=== PATIENT | male | born 1985 | race Caucasian/White ===

== ENCOUNTER 2023-08-02 15:55 | Emergency (ER) | payer OTHER, SELFPAY ==
--- NOTE | ~2023-08-02 | XR_ITS ---
EXAMINATION: XR cervical spine 4-5V DATE: 08/02/2023 16:34 INDICATION: Neck pain and stiffness. TECHNIQUE: 5 views of cervical spine were obtained. COMPARISON: None. FINDINGS: Bone alignment is normal. Vertebral body heights and intervertebral disc heights are normal . The facet joints are unremarkable. No central canal stenosis or prevertebral soft tissue swelling. IMPRESSION: 1. No etiology for the patient's symptoms. Reviewed, dictated and finalized at location E.
[2023-08-02 16:02] VITALS: BP 159/105; PULSE 84; RESP 16; TEMP 36.7; O2SAT 97
--- NOTE | 2023-08-02 16:10 | ED.URI ---
HPI - URI/Sore Throat General Chief Complaint: Neck Pain/Injury Stated Complaint: Neck Pain Source: patient and RN notes reviewed History of Present Illness HPI Narrative: 37 yo M presents to urgent care with complaints of posterior lower neck pain. Pt states he woke up with this pain and it is exacerbated when he moves his head in any direction. Pt denies any injury. Denies any numbness, tingling, headache, vomiting, or arm pain. Pt states he has never had this pain before but it feels like it is deep in his spine. Pt took ibuprofen this morning. Pt states he has had a foul taste in his mouth x 3 weeks and was going to come in any way today to be evaluated for throat infection. Related Data Allergies Allergy/AdvReac Type Severity Reaction Status Date / Time No Known Allergies Allergy Verified 08/02/23 16:16 Review of Systems Review of Systems: CONSTITUTIONAL: Denies fever, chills, or sweats. EYES: Denies visual changes, redness, or discharge. ENT: Denies otalgia and sore throat. bad taste in mouth CARDIOVASCULAR: Denies chest pain, palpitations, or edema. RESPIRATORY: Denies cough or dyspnea. GASTROINTESTINAL: Denies abdominal pain, nausea, vomiting, or diarrhea. GENITOURINARY: Denies dysuria or hematuria. SKIN: Denies rash or itching. MUSCULOSKELETAL:Posterior neck pain. NEUROLOGIC: Denies headache, numbness, or weakness. Pertinent positives per HPI. PMFSH Comments At the time of my signature, I reviewed and agree with the nursing past medical, surgical, social, and family history. There is no relevant family history pertinent to the patient complaint. Exam Narrative: GENERAL: This is a well-nourished, well-developed patient, in no apparent distress. HEAD: normocephalic, atraumatic. EYES: Sclera clear/white. Vision is grossly intact. EARS: External ears normal, auditory canals clear and without drainage, TMs normal without perforation. Hearing grossly intact. NOSE: External nose normal with no obvious nasal discharge, nares without redness, no rhinorrhea. THROAT: Mucous membranes moist, posterior pharynx clear. NECK: Neck supple, non-tender without lymphadenopathy, masses or thyromegaly. Pt unable to rotate head, flex, or extend neck due to pain. CARDIOVASCULAR: Regular rate and rhythm without murmurs, gallops, or rubs. RESPIRATORY: Clear to auscultation. Breath sounds equal bilaterally. No wheezes, rales, or rhonchi. GASTROINTESTINAL: Abdomen soft, non-tender, nondistended. Bowel sounds are active. No hepato-splenomegaly, or palpable masses. No guarding. SKIN: warm, intact with no suspicious lesions or rash, good texture and turgor. NEURO: awake, alert, and oriented to person, place and time. There were no obvious focal neurologic abnormalities. EXTREMITIES: No clubbing, cyanosis, or edema. No joint tenderness, effusion, or edema noted. BACK: Nontender without deformity or crepitus. No flank tenderness. Course Course Level of Care: Express Care Visit Vital Signs Vital signs: Vital Signs Temperature 98.1 F 08/02/23 16:02 Pulse Rate 84 08/02/23 16:02 Respiratory Rate 16 08/02/23 16:02 Blood Pressure 159/105 H 08/02/23 16:02 Pulse Oximetry 97 08/02/23 16:02 Oxygen Delivery Room Air 08/02/23 16:02 Temperature 98.1 F 08/02/23 16:02 Pulse Rate 84 08/02/23 16:02 Respiratory Rate 16 08/02/23 16:02 Blood Pressure 159/105 H 08/02/23 16:02 Pulse Oximetry 97 08/02/23 16:02 Oxygen Delivery Room Air 08/02/23 16:02 Reviewed MDM - URI/Sore Throat MDM Narrative Medical decision making narrative: Not likely meningitis due to lack of fever, tachycardia, or headache. Pt looks well. It was strongly advised for pt to go to the ER with any new or worsening symptoms. Take the muscle relaxers as directed if needed. Do not drive while taking the muscle relaxers. May take 800 mg of ibuprofen every 8 hours with food and 1,000 mg of Tylenol every 6 hours if needed. D
== END 2023-08-02 16:50 | disposition home or self-care (01) ==
PROVIDERS: Emergency Provider Nurse Practitioner Family
DX: S16.1XXA Strain of muscle, fascia and tendon at neck level, initial encounter (principal); X58.XXXA Exposure to other specified factors, initial encounter
CPT/HCPCS: 72050; 87081; 87880; 99213; G0463

== ENCOUNTER 2024-12-09 16:40 | Emergency (ER) | payer OTHER, SELFPAY ==
--- NOTE | 2024-12-09 16:47 | ED_ITS ---
HPI - URI/Sore Throat General Chief Complaint: Upper Respiratory Infection Stated Complaint: COUGH/CHEST PAIN Time Seen by Provider: 12/09/24 17:01 Source: patient and RN notes reviewed Mode of arrival: ambulatory Limitations: no limitations History of Present Illness HPI Narrative: 38-year-old male presents concern for cough for 3 days. Reports that got worse last night. Reports a headache, body aches, low-grade temperature. Reports his ribs hurt from coughing. Reports he took Tylenol MD elicited complaint: cough Related Data Allergies Allergy/AdvReac Type Severity Reaction Status Date / Time No Known Allergies Allergy Verified 12/09/24 16:54 Review of Systems Review of Systems: CONSTITUTIONAL: Reports malaise, low-grade fever. EYES: Denies visual changes, redness, or discharge. ENT: Denies rhinorrhea, congestion, sinus pain, otalgia and sore throat. CARDIOVASCULAR: Denies chest pain, palpitations, or edema. RESPIRATORY: Reports cough. Denies dyspnea. GASTROINTESTINAL: Denies abdominal pain, nausea, vomiting, diarrhea SKIN: Denies rash or itching. MUSCULOSKELETAL: Reports myalgia. NEUROLOGIC: Reports headache. All systems reviewed & are unremarkable except as noted in HPI and below PMFSH Comments At time of signature, agree with nursing past medical, surgical, social and family history. There is no relevant family history pertinent to the presenting complaint Exam Narrative: GENERAL: Nontoxic-appearing, well-nourished, and in no acute distress. HEAD: Normocephalic EYES: PERRLA, conjunctivae clear ENT: Nares clear. Mucous membranes moist. TM pearly cruz with sharp light reflex bilaterally; no tragal tenderness. Oropharynx not erythematous without lesions. Tonsils not enlarged and without exudate, no drooling, no hoarseness, no trismus, uvula midline. NECK: Supple. No lymphadenopathy CHEST: Clear to auscultation, breath sounds equal. No wheezing, rhonchi, rales, or stridor. No respiratory distress, speaks in full sentences. HEART: Regular rate and rhythm. No murmur heard. SKIN: Warm, dry, no rash. NEURO: Alert and oriented x3. PSYCH: Normal mood and affect Course Course Emergency Course: Patient is aware of diagnosis, understands and agrees to treatment plan. Anticipatory guidance given. Patient agrees to follow-up as directed and is aware of reasons to seek care at the emergency department. Portions of this record may have been created with voice recognition software Level of Care: Express Care Visit Vital Signs Vital signs: Reviewed. MDM - URI/Sore Throat MDM Narrative Medical decision making narrative: Differential diagnosis considered: Rice virus, strep pharyngitis, allergic rhinitis, upper respiratory tract infection, sinusitis, rhinosinusitis, nasopharyngitis. viral pharyngitis, otitis media, otitis externa, pneumonia, bronchitis, viral cough syndrome, viral syndrome, and influenza. Exam findings show no acute concerns or changes; patient is non-toxic appearing and is in no distress. Patient is appropriate for outpatient treatment and follow-up. Lab Data Attestation: I reviewed the patient's lab results. Critical Care Time Critical Care Time Critical Care Time: No Discharge Plan Discharge Clinical Impression: Influenza A Patient Disposition: Home, Self-Care Condition: Stable Instructions: Influenza (ED) Additional Instructions: -Take strict precautions to prevent the spread of your virus. Be diligent about covering your cough (even when you are alone) and washing your hands frequently. -You may contagious until you have been symptom and/or fever free for 24 hours without fever reducing medicine -Alternate Ibuprofen and Tylenol for pain and fever relief (per package directions) -Some Cough medicines may make you drowsy, do not take it if you have to make important decisions, drive, or work. -Drink plenty of fluid - drink fluid with electrolytes such as Gatorade or other oral re-hydration solution. Avoid caffeine, which can make dehydration worse. -Get plenty of rest to help your body heal. -Use a cool mist humidifier for chest and nasal congestion. -Eat RAW honey or use cough drops to ease throat discomfort -Do not smoke or expose children to secondhand smoke -Wash your hands frequently. -Please follow-up with your primary care doctor in the next 1-2 days if your symptoms do not improve. -If you have any worsening of symptoms or any other concerns please go to the ED immediately. -Please take medications as prescribed and continue taking your home medications as usual. Patient Language: Cameroonian Prescriptions: New promethazine-DM 6.25-15 mg/5 mL syrup 5 ml PO Q4-6H PRN (Reason: cough) Qty: 120 0RF methylprednisolone [Medrol (Landon)] 4 mg tablets,dose pack See Rx Instructions .ROUTE .COMPLEX Qty: 21 0RF Rx Instructions: orally per package directions albuterol sulfate 90 mcg/actuation HFA aerosol inhaler 2 puff INHALATION QID PRN (Reason: shortness of breath or wheezing) Qty: 8.5 0RF Follow-up/Referrals: PHYSICIAN,APPLIED PSYCHOLOGY PROFESSOR [Primary Care Provider] - Stand Alone Forms: Work/School Release IP Time of Disposition: 17:06
[2024-12-09 16:48] VITALS: BP 177/105; PULSE 91; RESP 20; TEMP 37.4; O2SAT 98
[2024-12-09 17:12] LABS: EDCOVIDSCREEN Negative (Negative); EDINFLUASCREEN Positive (Negative); EDINFLUBSCREEN Negative (Negative)
--- OUTSIDE RECORDS SUMMARY | 2024-12-09 18:41 | XMS_ITS | Clinical Summary ---
Author Organization [facility] Address [address] [place] [address] Care Team Providers Care Retail Client Solutions Analyst Name Role Phone Unavailable Primary Care Provider Unavailabl e Source Comments [facility],non-owned Affiliates and Associated Physician Practices is amultiple site organization consisting of ambulatory clinics and hospital sitesin [place], [place], [place] and [place]. This disclosure is being madepursuant to the Care Everywhere program and may not contain all information available regarding this patient. Last updated 18.[facility] Allergies No known active allergies Social History Tobacco Use Types Packs/Day Years Used Date Smoking Tobacco: Never Assessed Sex and Gender Information Value Date Recorded Sex Assigned at Not on file Gender Identity Not on file Sexual Orientation Not on file Last Filed Vital Signs Vital Sign Reading Time Taken Comments Blood Pressure 157/111 06/13/2022 4:25 PM CDT Pulse 90 06/13/2022 4:25 PM CDT Temperature 36.5 C (97.7 F) 06/13/2022 12:47 PM CDT Respiratory Rate 10 06/13/2022 1:25 PM CDT Oxygen Saturation 97% 06/13/2022 4:25 PM CDT Inhaled Oxygen Concentration - - Weight 81.6 kg (180 lb) 06/13/2022 12:47 PM CDT Height 172.7 cm (5' 8 ) 06/13/2022 12:47 PM CDT Body Mass Index 27.37 06/13/2022 12:47 PM CDT Plan of Treatment Health Maintenance Due Date Last Done Comments LIPID TESTING 1983 HIV SCREENING 1998 HEPATITIS C SCREENING 12/08/2001 DTAP/TDAP/TD VACCINES (1 - Tdap) 2002 HEPATITIS B VACCINE (1 of 3 - 19+ 3-dose series) 2002 COVID-19 VACCINE (2023-2 5 season) 2024 INFLUENZA VACCINE (#1) 2024 DEPRESSION SCREENING 10/16/2024 ZOSTER VACCINE (1 of 2) 2033 HIB VACCINE Aged Out No longer eligi ble based on patient's age to complete this topic HPV VACCINE Aged Out No longer eligi ble based on patient's age to complete this topic MENINGOCOCCAL (Group B) VACCINE Aged Out No longer eligible based on patient's age to complete this topic MENINGOCOCCAL VACCINE Aged Out No darshana shakila eligible based on patient's age to complete this topic PNEUMOCOCCAL VACCINE Aged Out No long er eligible based on patient's age to complete this topic
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
--- OUTSIDE RECORDS SUMMARY | 2024-12-09 18:41 | XMS_ITS | Referral Summary ---
Author Organization [facility] Address [facility] [place] [address] Care Team Providers Care Quick Technician Name Role Phone Unavailable Primary Care Provider Unavailabl e Source Comments [facility],non-owned Affiliates and Associated Physician Practices is amultiple site organization consisting of ambulatory clinics and hospital sitesin [place], [place], [place] and [place]. This disclosure is being madepursuant to the Care Everywhere program and may not contain all information available regarding this patient. Last updated 18.[facility] [employer] Allergies No known active allergies Social History [...] 06/13/2022 12:47 PM CDT Plan of Treatment Not on file
--- OUTSIDE RECORDS SUMMARY | 2024-12-09 18:42 | XMS_ITS | Patient Health Summary ---
Author Organization [facility] Address [address] [place] [address] Care Team Providers Care Claims Customer Service Representative Name Role Phone Unavailable Primary Care Provider Unavailabl e Note from [facility],non-owned Affiliates and Associated Physician Practices is amultiple site organization consisting of ambulatory clinics and hospital sitesin [place], [place], [place] and [place]. This disclosure is being madepursuant to the Care Everywhere program and may not contain all information available regarding this patient. Last updated 18.[facility] [employer] [facility] Allergies No known active allergies Social History [...] Mass Index 27.37 06/13/2022 12:47 PM CDT Procedures * CARDIAC EKG ORDER(Performed 06/15/2022) * CBC W AUTO DIFFERENTIAL(Performed 06/13/2022) * CK BLOOD(Performed 06/13/2022) * COMPREHENSIVE METABOLIC PANEL(Performed 06/13/2022) Results * CARDIAC EKG ORDER (06/15/2022 12:33 PM CDT) Narrative 06/15/2022 12:33 PM CDT Ordered by an unspecified provider. Scanned Document CARDIAC SERVICES ORD ERABLES * CBC W AUTO DIFFERENTIAL (06/13/2022 1:34 PM CDT) WBC 6.8 3.5 - 10.5 10 3/uL 06/13/2022 1:47 PM [facility] RBC 4.90 4.30 - 5.70 10 6/uL 06/13/2022 1:47 PM [facility] Hemoglobin 14.7 12.0 - 17.6 g/dL 06/13/2022 1:47 PM [facility] Hematocrit 41.7 35.2 - 51.7 % 06/13/2022 1:47 PM [facility] MCV 85.1 80.7 - 98.3 fL 06/13/2022 1:47 PM [facility] MCH 30.0 26.7 - 34.0 pg 06/13/2022 1:47 PM [facility] MCHC 35.3 30.8 - 35.9 g/dL 06/13/2022 1:47 PM [facility] Platelet Count 174 150 - 400 10 3/uL 06/13/2022 1:47 PM [facility] RDW-SD 38.4 36.0 - 50.0 fL 06/13/2022 1:47 PM [facility] RDW-CV 12.5 11.2 - 14.8 % 06/13/2022 1:47 PM [facility] MPV 11.1 9.4 - 12.9 fL 06/13/2022 1:47 PM [facility] nRBC Absolute 0.00 0 10 3/uL 06/13/2022 1:47 PM [facility] nRBC Auto 0.0 0 /100 WBC 06/13/2022 1:47 PM [facility] Neutrophils % 63.0 35.0 - 70.0 % 06/13/2022 1:47 PM [facility] Lymphocytes % 24.7 20.0 - 43.0 % 06/13/2022 1:47 PM [facility] Monocytes % 8.8 5.0 - 13.0 % 06/13/2022 1:47 PM [facility] Eosinophils % 2.2 0.0 - 6.0 % 06/13/2022 1:47 PM [facility] Basophil % 0.6 0.0 - 2.0 % 06/13/2022 1:47 PM [facility] Neutrophils Absolute 4.29 1.60 - 7.00 10 3/uL 06/13/2022 1:47 PM [facility] Lymphocyte Absolute 1.68 1.10 - 3.90 10 3/uL 06/13/2022 1:47 PM [facility] Monocytes Absolute 0.60 0.26 - 1.07 10 3/uL 06/13/2022 1:47 PM [facility] Eosinophils Absolute 0.15 0.00 - 0.47 10 3/uL 06/13/2022 1:47 PM [facility] Basophils Absolute 0.04 0.00 - 0.08 10 3/uL 06/13/2022 1:47 PM [facility] Immature Granulocytes % 0.7 0.0 - 1.0 % 06/13/2022 1:47 PM [facility] Immature Granulocytes Absolute 0.05 06/13/2022 1:47 PM [facility] Blood BLOOD SPECIMEN / Unknown Venipuncture / Unknown 06/13/2022 1:34 PM CDT 06/13/2022 1:44 PM CDT Ketan Love MD LAB - HEMATOLO GY ORDERABLES [address] [address], [facility] [phone] * (ABNORMAL) COMPREHENSIVE METABOLIC PANEL (06/13/2022 1:01 PM CDT) BUN 19 7 - 26 mg/dL 06/13/2022 1:35 PM [facility] Creatinine 1.30(H) 0.71 - 1.16 mg/dL 06/13/2022 1:35 PM [facility] Sodium 140 136 - 145 mmol/L 06/13/2022 1:35 PM [facility] Potassium 4.1 3.5 - 4.5 mmol/L 06/13/2022 1:35 PM [facility] Chloride 103 98 - 107 mmol/L 06/13/2022 1:35 PM [facility] CO2 23 22 - 29 mmol/L 06/13/2022 1:35 PM [facility] Glucose 163(H) 70 - 115 mg/dL 06/13/2022 1:35 PM [facility] Calcium 10.2 8.4 - 10.2 mg/dL 06/13/2022 1:35 PM [facility] Protein Total 7.5 6.0 - 8.3 g/dL 06/13/2022 1:35 PM [facility] Albumin 4.5 3.4 - 5.0 g/dL 06/13/2022 1:35 PM [facility] Bilirubin Total 0.3 0.2 - 1.2 mg/dL 06/13/2022 1:35 PM [facility] Alkaline Phosphatase 86 40 - 150 U/L 06/13/2022 1:35 PM [facility] ALT 28 5 - 55 U/L 06/13/2022 1:35 PM [facility] AST 22 5 - 34 U/L 06/13/2022 1:35 PM [facility] Anion Gap 18 8 - 18 06/13/2022 1:35 PM [facility] BUN/Creatinine Ratio 15 7 - 23 06/13/2022 1:35 PM [facility] Osmolality Calculated 296 270 - 300 mOsm/kg 06/13/2022 1:35 PM [facility] Albumin/Globulin Ratio 1.5 1.1 - 2.3 06/13/2022 1:35 PM [facility] eGFR by CKD-EPI 72(L) >=90 mL/min/1.7 3 m2 06/13/2022 1:35 PM [facility] Blood BLOOD SPECIMEN / Unknown Venipuncture / Unknown 06/13/2022 1:01 PM CDT 06/13/2022 1:09 PM CDT Ketan Love MD LAB - CHEMISTR Y ORDERABLES Performing Organization Address City/[facility]/ZIP Co de Phone Number [facility] [address] [place] [address], [facility] [phone] * (ABNORMAL) CK BLOOD (06/13/2022 1:01 PM CDT) CK Total 237(H) 30 - 200 U/L 06/13/2022 1:35 PM CDT [facility] Blood BLOOD SPECIMEN / Unknown Venipuncture / Unknown 06/13/2022 1:01 PM CDT 06/13/2022 1:09 PM CDT Ketan Love MD LAB - CHEMISTR Y ORDERABLES Performing Organization Address City/[facility]/ZIP Co de Phone Number [facility] [address] [place] [phone], [facility] [phone]
== END 2024-12-09 17:12 | disposition home or self-care (01) ==
PROVIDERS: Emergency Provider Nurse Practitioner
DX: J10.1 Influenza due to other identified influenza virus with other respiratory manifestations (principal); Z20.822 Contact with and (suspected) exposure to COVID-19
CPT/HCPCS: 87426; 87804; 99213; G0463

== ENCOUNTER 2025-09-29 19:08 | Emergency (ER) | payer OTHER, SELFPAY ==
--- OUTSIDE RECORDS SUMMARY | 2025-09-29 19:11 | XMS_ITS | Clinical Summary ---
Author Organization [facility] MailWriter Address [address] [address] Care Team Providers Care Train Braker Name Role Phone Unavailable Primary Care Provider Unavailabl e Source Comments [facility],non-owned Affiliates and Associated Physician Practices is amultiple site organization consisting of ambulatory clinics and hospital sitesin [place], [place], [place] and [place]. This disclosure is being madepursuant to the Care Everywhere program and may not contain all information available regarding this patient. Last updated 18.[facility] Allergies No known active allergies Social History Tobacco Use Types Packs/Day Years Used Date Smoking Tobacco: Never Assessed Sex and Gender Information Value Date Recorded Sex Assigned at Not on file Legal Sex Male 12:51 PM CDT Gender Identity Not on file Sexual Orientation [...] 12:47 PM CDT Height 172.7 cm (5' 8) 06/13/2022 12:47 PM CDT Body Mass Index 27.37 06/13/2022 12:47 PM CDT Plan of Treatment Health Maintenance Due Date Last Done Comments LIPID TESTING 1983 HIV SCREENING 1998 HEPATITIS C SCREENING 12/08/2001 DTAP/TDAP/TD VACCINES (1 - Tdap) 2002 HEPATITIS B VACCINE (1 of 3 - 19+ 3-dose series) 2002 HPV VACCINE (1 - 3-dose SCDM series) 2010 DEPRESSION SCREENING 10/16/2024 COVID-19 VACCINE (1 - 2024-2 6 season) 2025 INFLUENZA VACCINE (#1) 2025 ZOSTER VACCINE (1 of 2) 2033 HIB VACCINE Aged Out No longer eligi ble based on patient's age to complete this topic MENINGOCOCCAL (Group B) VACC INE SHARED DECISION-MAKING Aged Out No longer eligibl e based on patient's age to complete this topic MENINGOCOCCAL GROUPS A/C/Y/W VACCINE Aged Out No longer eligible b ased on patient's age to complete this topic PNEUMOCOCCAL VACCINE Aged Out No long er eligible based on patient's age to complete this topic Insurance [employer]
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
[2025-09-29 19:14] VITALS: BP 183/100; PULSE 91; RESP 20; TEMP 36.9; O2SAT 98
[2025-09-29 19:47] VITALS: BP 165/105
[2025-09-29 19:48] VITALS: BP 176/103
--- NOTE | 2025-09-29 19:57 | ED.URI ---
HPI - URI/Sore Throat General Chief Complaint: Upper Respiratory Infection Stated Complaint: cough Time Seen by Provider: 09/29/25 19:45 Source: patient Mode of arrival: ambulatory Limitations: no limitations History of Present Illness HPI Narrative: 39 year old male presents to [facility] with 1.5 weeks of cough with worsening for the past 4-5 days. Patient reports that he has some chest heaviness with his cough with some headache and some neck pain. Patient reports that he does have history of asthma. Patient reports that he has been taking Mal[place] cold and flu and Ibuprofen and also has beenn using his albuterol inhaler MD elicited complaint: cough and sore throat Pertinent past history: asthma Onset (ago): week(s) (1.5 weeks) Pain scale (0-10): 4 Able to tolerate fluids by mouth: Yes Treatments prior to arrival: ibuprofen, cold medicine and other (inhaler of albuterol as ordered) Related Data Allergies Allergy/AdvReac Type Severity Reaction Status Date / Time No Known Allergies Allergy Verified 09/29/25 19:44 Review of Systems Review of Systems: CONSTITUTIONAL: Denies malaise, chills, sweats, or fever. EYES: Denies visual changes, redness, or discharge. ENT: Reports rhinorrhea, congestion, sinus pain,no otalgia and no sore throat. CARDIOVASCULAR: Denies chest pain, palpitations, or edema. RESPIRATORY: Reports frequent cough.? Denies dyspnea.heaviness chest with cough GASTROINTESTINAL: Denies abdominal pain, nausea, vomiting, diarrhea SKIN: Denies rash or itching. MUSCULOSKELETAL: Denies myalgia, some neck discomfort NEUROLOGIC: reports headache. All systems reviewed & are unremarkable except as noted in HPI and below PMFSH Past Medical History Medical History (Updated 10/01/25 @ 17:28 by Shameka Yin APRN) Asthma Social History Social History (Updated 10/01/25 @ 17:27 by Shameka Yin APRN) Smoking status: Never smoker Comments At time of signature, agree with nursing past medical, surgical, social and family history. There is no relevant family history pertinent to the presenting complaint Exam Narrative: GENERAL: Well-appearing, well-nourished, and in no acute distress. HEAD: Normocephalic EYES: PERRLA, conjunctivae clear ENT: Nares clear, turbinates edematous and erythematous, clear discharge. Mucous membranes moist. TM pearly cruz with dull light reflex bilaterally; no tragal tenderness. Oropharynx erythematous without lesions. Tonsils not enlarged and without exudate, no drooling, no hoarseness, no trismus, uvula midline. NECK: Supple. No lymphadenopathy,moves neck in all directions without difficulty CHEST: Clear to auscultation, breath sounds equal. No wheezing, rhonchi, rales, or stridor. No respiratory distress, speaks in full sentences.frequent cough SAO2 98% on room air HEART: Regular rate and rhythm. No murmur heard. SKIN: Warm, dry, no rash. NEURO: Alert and oriented x3. PSYCH: Normal mood and affect Course Course Level of Care: Express Care Visit Vital Signs Vital signs: Vital Signs Temperature 36.9 C 09/29/25 19:14 Pulse Rate 91 09/29/25 19:14 Respiratory Rate 20 09/29/25 19:14 Blood Pressure 183/100 H 09/29/25 19:14 Pulse Oximetry 98 09/29/25 19:14 Oxygen Delivery Room Air 09/29/25 19:14 Temperature 36.9 C 09/29/25 19:14 Pulse Rate 91 09/29/25 19:14 Respiratory Rate 20 09/29/25 19:14 Blood Pressure 176/103 H 09/29/25 19:48 Pulse Oximetry 98 09/29/25 19:14 Oxygen Delivery Room Air 09/29/25 19:14 reviewed [facility] Narrative Medical decision making narrative: Patient has acute cough and upper respiratory infection with history of asthma, tested negative for COVID Flu and Strep is appropriate for outpatient care and follow up. Anticipatory guidance and reasons to seek care in ED reviewed with patient with understanding voiced. Differential Diagnosis Differential Diagnosis: Differential diagnostic considerations for upper respiratory infection include upper respiratory infection, croup, otitis media, sinusitis, viral infection, bronchitis, influenza, pharyngitis, strep, uvulitis.? Lab Data [facility] Lab Attestation statement: I personally reviewed the patient's lab results. Lab results narrative: influenza A&B negative,COVID antigen negative,strep screen negative culture sent Labs: Lab Results 09/29/25 Range/Units 19:20 POC Influenza A Ag Negative (Negative) POC Influenza B Ag Negative (Negative) POC SARS CoV-2 Ag Negative (Negative) reviewed Critical Care Time Critical Care Time Critical Care Time: No Discharge Plan Discharge Clinical Impression: Acute cough Upper respiratory infection Qualifiers: URI type: unspecified URI Qualified Code(s): J06.9 - Acute upper respiratory infection, unspecified Patient Disposition: Home Condition: Stable Instructions: Antibiotic Form Additional Instructions: Increase fluids especially juices and water Losv-ndk-flxfnsy cough and cold medicine of your choice for your symptoms recommend Delsym or Robitussin cough syrup Prescription cough medicine as directed--caution drowsiness and no driving or alcohol Tylenol or ibuprofen for any fever/ pain for package instructions Continue your inhaler/nebulizer as directed Steroids as directed--take with food heat to the face 20-30 minutes 4-6 times a day for pain Salt water gargles, throat lozenges or throat sprays as desired If your symptoms persist, change or worsen significantly before you can contact your personal physician then please, without delay, go to the emergency department for further evaluation. Follow-up with PCP in 7-10 days or sooner if needed Follow up with PCP soon in regards to your blood pressure which is elevated above threshold for referral. Blood pressure above 120/80 may indicate pre-hypertension. 176/103 Patient Language: Setswana Prescriptions: New prednisone 20 mg tablet 40 mg PO DAILY 5 Days Qty: 10 0RF Rx Instructions: start in the morning take with food codeine-guaifenesin 10-100 mg/5 mL liquid 10 ml PO Q4-6H PRN (Reason: cough) Qty: 200 0RF Rx Instructions: do not drive or operate machinery while taking albuterol sulfate [Ventolin HFA] 90 mcg/actuation HFA aerosol inhaler 2 puff inhalation QID PRN (Reason: shortness of breath or wheezing) Qty: 8.5 0RF Rx Instructions: whatever is covered on insurance No Action albuterol sulfate 90 mcg/actuation HFA aerosol inhaler 2 puff INHALATION QID PRN (Reason: shortness of breath or wheezing) Qty: 8.5 0RF Follow-up/Referrals: PHYSICIAN,[facility]ER [Primary Care Provider, Internal Medicine] Time of Disposition: 20:12 Quality Outing Coma Scale Eyes: Open Verbal: Oriented and Alert Motor: Follows Commands Karel Coma Total Score: 15
[2025-09-29 21:01] LABS: EDCOVIDSCREEN Negative (Negative); EDINFLUASCREEN Negative (Negative); EDINFLUBSCREEN Negative (Negative)
== END 2025-09-29 20:15 | disposition home or self-care (01) ==
PROVIDERS: Emergency Provider Registered Nurse
DX: R05.1 Acute cough (principal); J06.9 Acute upper respiratory infection, unspecified; Z20.822 Contact with and (suspected) exposure to COVID-19; J45.909 Unspecified asthma, uncomplicated
CPT/HCPCS: 87426; 87804; 99213; G0463